=== PATIENT | female | born 1950 | race Caucasian/White ===

== ENCOUNTER → 2024-05-05 | Outpatient (BNVA) | payer MEDICARE, SELFPAY | END | disposition home or self-care (01) | PROVIDERS: PCP Internal Medicine; Referring Provider Internal Medicine; Visit Provider Urology | DX: R35.0 Frequency of micturition (principal); Z87.440 Personal history of urinary (tract) infections; K21.9 Gastro-esophageal reflux disease without esophagitis | CPT/HCPCS: 81003; 99212; G0463 ==

== ENCOUNTER → 2024-07-10 | Outpatient (CLI) | payer MEDICARE, SELFPAY ==
--- NOTE | 2024-07-10 09:56 | XR_ITS ---
Examination: CT abdomen with intravenous contrast CT pelvis with intravenous contrast 2-D coronal reconstructions 2-D sagittal reconstructions Date and time of exam:July 10, 2024 at 1040 hours Comparison November 25, 2023 INDICATIONS: Urinary frequency several months., Diagnosis kidney stones 2023 CTDI: vol (mGy) 8.56 DLP: (mGycm) 148 Technique: Multiple axial sections of the abdomen and pelvis have been obtained. 64 slice high-resolution scanner used. 3 mm axial sections have been obtained, post intravenous injection 60 cc [id number] 2-D sagittal, coronal reconstructions obtained. Low dose protocols were performed. One or more of the following dose reduction techniques were used; automated exposure control, adjustment of the mA and/or KV according to patient size, use of iterative reconstruction technique. Findings: No focal liver or splenic lesions Absent gallbladder No pancreatic or adrenal mass Significant scarring left kidney 2 mm lower pole left renal calculus, no hydronephrosis or ureteral calculi Abundant stool throughout the colon Normal appendix No bowel obstruction Scattered colonic diverticulosis Focal fat inflammation in the lower pelvis, axial image 177, measuring 16 mm No pelvic mass Contracted urinary bladder IMPRESSION: Significant scarring left kidney 2 mm lower pole nonobstructing left renal calculus, no hydronephrosis or ureteral calculi Normal appendix Focal fat inflammation in the pelvis, appendagitis epiploica
== END | disposition home or self-care (01) ==
LOC: SCAT 09:32
PROVIDERS: PCP Family Medicine; Referring Provider Internal Medicine; Visit Provider Internal Medicine
DX: N28.89 Other specified disorders of kidney and ureter (principal); N20.0 Calculus of kidney; N73.8 Other specified female pelvic inflammatory diseases
CPT/HCPCS: 74177; A4649; Q9967

== ENCOUNTER → 2024-08-01 | Outpatient (CLI) | payer MEDICARE, SELFPAY ==
--- NOTE | 2024-08-01 12:54 | XR_ITS ---
Examination: PA lateral chest 2 views TECHNIQUE: Upright PA lateral chest 2 views Exam date and time: 07/01/2024 1439 hours INDICATIONS: Coughing beginning 4 days ago. FINDINGS: Basilar bronchitis pattern Normal heart size No lobar pneumonia IMPRESSION: Basilar bronchitis pattern
== END | disposition home or self-care (01) ==
LOC: CDIM 12:46
PROVIDERS: PCP Family Medicine; Referring Provider Nurse Practitioner Family; Visit Provider Nurse Practitioner Family
DX: R05.9 Cough, unspecified (principal)
CPT/HCPCS: 71046

== ENCOUNTER → 2024-09-05 | Outpatient (CLI) | payer MEDICARE, SELFPAY ==
--- NOTE | 2024-09-05 | XR_ITS ---
Examination: PA lateral chest 2 views Technique: Upright PA lateral chest 2 views Exam date and time: September 05, 2024 1107 hrs. Indications: Preop Findings: Mild prominence left ventricle No pneumonia or pulmonary edema Moderate osteopenia Impression: No active disease
== END | disposition home or self-care (01) ==
PROVIDERS: PCP Internal Medicine; Referring Provider Internal Medicine; Visit Provider Internal Medicine
DX: R05.9 Cough, unspecified (principal)
CPT/HCPCS: 71046

== ENCOUNTER → 2025-05-04 | Outpatient (BNVA) | payer MEDICARE, SELFPAY | END | disposition home or self-care (01) | PROVIDERS: PCP Internal Medicine; Referring Provider Internal Medicine; Visit Provider Urology | DX: N39.3 Stress incontinence (female) (male) (principal); Z48.816 Encounter for surgical aftercare following surgery on the genitourinary system | CPT/HCPCS: 81003; 99212; G0463 ==